=== PATIENT | female | born 1970 | race Caucasian/White ===

== ENCOUNTER 2023-11-24 15:30 | Outpatient (RCR) | payer OTHER, SELFPAY | END 2024-03-23 23:59 | disposition home or self-care (01) | PROVIDERS: PCP Family Medicine; Visit Provider Family Medicine | DX: M79.671 Pain in right foot (principal); M76.821 Posterior tibial tendinitis, right leg; Z51.89 Encounter for other specified aftercare | CPT/HCPCS: 97110; 97140; 97161 ==